=== PATIENT | female | born 1950 | race Asian ===

== ENCOUNTER 2017-11-24 22:42 | Inpatient (IN) | payer OTHER ==
[~2017-11-24] VITALS: Ht 152.4 cm; Wt 56.3 kg
[2017-11-25 00:01] LABS: HEMATOCRIT 38.8 % (36.0-46.0); HEMOGLOBIN 12.8 G/DL (11.9-15.5); MCH 27.2 PG (29.0-34.0); MCV 82.4 FL (83-99); PLATELET COUNT 291 K/uL (156-360); RBC DIS.WIDTH-CV 12.6 % (11.8-14.6); RED BLOOD COUNT 4.71 M/uL (3.80-5.20); WHITE BLOOD COUNT 11.6 K/uL (4.1-10.2)
[2017-11-25 00:10] LABS: CHLORIDE 103 mEq/L (99-109); POTASSIUM 3.9 mEq/L (3.7-5.4); SODIUM 138 mEq/L (136-147)
[2017-11-25 00:11] LABS: GLUCOSE 132 mg/dL (70-99)
[2017-11-25 00:15] LABS: CREATININE 0.8 mg/dL (0.6-1.3)
[2017-11-25 00:16] LABS: UREA NITROGEN (BUN) 11 mg/dL (9-23)
[2017-11-25 00:32] LABS: GFR ESTIMATE (CALCULATED) > 59 mL/min/
[2017-11-25 01:50] LABS: TOTAL PROTEIN 7.4 g/dL (6.4-8.3)
[2017-11-25 01:51] LABS: TOTAL BILIRUBIN 0.9 mg/dL (0.0-1.0)
[2017-11-25 01:52] LABS: ALKALINE PHOSPHATASE 79 IU/L (3-129)
[2017-11-25 01:55] LABS: AST (GOT) 26 IU/L (2-34); DIRECT BILIRUBIN 0.3 mg/dL (0.0-0.3)
[2017-11-25 01:56] LABS: ALT (GPT) 27 IU/L (3-49); LIPASE 51 U/L (1.0-51.0)
[2017-11-25 01:59] LABS: TROP-I INTERPRETATION NEGATIVE; TROPONIN-I < 0.01 ng/mL (0.0-0.30)
[2017-11-25 03:57] LABS: PTT 31.4 SEC (25-37)
[2017-11-25 06:20] VITALS: BP 152/88
[2017-11-25 07:30] VITALS: BP 145/84
[2017-11-25 07:38] LABS: TROP-I INTERPRETATION NEGATIVE; TROPONIN-I < 0.01 ng/mL (0.0-0.30)
[2017-11-25 12:01] VITALS: BP 171/93
[2017-11-25 13:30] LABS: TROP-I INTERPRETATION NEGATIVE; TROPONIN-I < 0.01 ng/mL (0.0-0.30)
[2017-11-25 15:22] VITALS: BP 147/81
[2017-11-25 19:29] VITALS: BP 128/75
[2017-11-26] VITALS (7 sets, daily range): BP systolic 92–158; BP diastolic 51–81
[2017-11-26 06:47] LABS: CHLORIDE 106 MEQ/L (99-109); GFR ESTIMATE (CALCULATED) 59 mL/min/; GLUCOSE 100 mg/dL (70-99); POTASSIUM 3.9 MEQ/L (3.7-5.4); SODIUM 137 MEQ/L (136-147); UREA NITROGEN (BUN) 12 mg/dL (9-23)
[2017-11-26 06:48] LABS: HEMATOCRIT 32.5 % (36.0-46.0); MCH 26.8 PG (29.0-34.0); MCHC 31.7 G/DL (30.0-36.0); MCV 84.4 FL (83-99); PLATELET COUNT 247 K/uL (156-360); RBC DIS.WIDTH-CV 12.9 % (11.8-14.6); RBC DIS.WIDTH-SD 39.9 % (39-53); RED BLOOD COUNT 3.85 M/uL (3.80-5.20); WHITE BLOOD COUNT 12.3 K/uL (4.1-10.2)
[2017-11-26 06:49] LABS: HEMOGLOBIN 10.3 G/DL (11.9-15.5)
[2017-11-26] MEDS ORDERED: PAIN & FEVER325 MG PO (09:44)
[2017-11-27 03:52] VITALS: BP 156/86
[2017-11-27 07:17] LABS: CHLORIDE 106 MEQ/L (99-109); CREATININE 0.6 MG/DL (0.6-1.3); GFR ESTIMATE (CALCULATED) > 59 mL/min/; GLUCOSE 110 mg/dL (70-99); HEMOGLOBIN 10.4 G/DL (11.9-15.5); MCH 28.1 PG (29.0-34.0); MCHC 33.5 G/DL (30.0-36.0); MCV 83.8 FL (83-99); PLATELET COUNT 282 K/uL (156-360); POTASSIUM 3.6 MEQ/L (3.7-5.4); RBC DIS.WIDTH-CV 12.9 % (11.8-14.6); RBC DIS.WIDTH-SD 39.6 % (39-53); SODIUM 140 MEQ/L (136-147); UREA NITROGEN (BUN) 6 mg/dL (9-23); WHITE BLOOD COUNT 9.3 K/uL (4.1-10.2)
[2017-11-27 07:32] LABS: INTER. NORMALIZED RATIO 1.7
[2017-11-27 07:35] LABS: PTT 65.6 SEC (25-37)
[2017-11-27 07:42] VITALS: BP 153/85
[2017-11-27 11:08] VITALS: BP 141/80
[2017-11-27 17:11] VITALS: BP 143/89
[2017-11-27 20:46] VITALS: BP 133/996
[2017-11-27 23:43] VITALS: BP 135/85
[2017-11-28 07:10] LABS: INTER. NORMALIZED RATIO 1.8
[2017-11-28 07:13] LABS: PTT 64.9 SEC (25-37)
[2017-11-28 08:28] VITALS: BP 156/83
[2017-11-28 16:25] VITALS: BP 154/84
[2017-11-28 23:40] VITALS: BP 128/71
[2017-11-29 06:16] LABS: HEMATOCRIT 33.3 % (36.0-46.0); HEMOGLOBIN 10.8 G/DL (11.9-15.5); MCH 26.6 PG (29.0-34.0); MCHC 32.4 G/DL (30.0-36.0); PLATELET COUNT 347 K/uL (156-360); RBC DIS.WIDTH-CV 12.8 % (11.8-14.6); RBC DIS.WIDTH-SD 38.7 % (39-53); RED BLOOD COUNT 4.06 M/uL (3.80-5.20); WHITE BLOOD COUNT 7.1 K/uL (4.1-10.2)
[2017-11-29 06:25] LABS: INTER. NORMALIZED RATIO 2.3
[2017-11-29 07:05] VITALS: BP 136/86
[2017-11-29 07:05] LABS: PTT 91.6 SEC (25-37)
[2017-11-29 15:37] VITALS: BP 140/84
[2017-11-30] VITALS: BP 133/84
[2017-11-30 03:05] LABS: INTER. NORMALIZED RATIO 3.1
[2017-11-30 06:40] VITALS: BP 160/85
[2017-11-30 11:49] LABS: INTER. NORMALIZED RATIO 3.4
[2017-11-30 15:00] VITALS: BP 145/79
[2017-12-01 06:38] LABS: CHLORIDE 103 MEQ/L (99-109); CREATININE 0.7 MG/DL (0.6-1.3); GFR ESTIMATE (CALCULATED) > 59 mL/min/; GLUCOSE 104 mg/dL (70-99); POTASSIUM 3.5 MEQ/L (3.7-5.4); SODIUM 141 MEQ/L (136-147); UREA NITROGEN (BUN) 11 mg/dL (9-23)
[2017-12-01 06:47] LABS: INTER. NORMALIZED RATIO 3.3
[2017-12-01 06:51] LABS: PTT 48.2 SEC (25-37)
[2017-12-01 07:11] LABS: HEMATOCRIT 36.5 % (36.0-46.0); HEMOGLOBIN 11.9 G/DL (11.9-15.5); MCHC 32.6 G/DL (30.0-36.0); MCV 82.8 FL (83-99); PLATELET COUNT 416 K/uL (156-360); RBC DIS.WIDTH-CV 13.1 % (11.8-14.6); RBC DIS.WIDTH-SD 39.2 % (39-53); RED BLOOD COUNT 4.41 M/uL (3.80-5.20); WHITE BLOOD COUNT 7.6 K/uL (4.1-10.2)
[2017-12-01 08:52] VITALS: BP 157/92
[2017-12-01] MEDS ORDERED: CARVEDILOL6.25 MG PO (11:35)
[2017-12-01] MEDS ORDERED: COUMADIN3 MG PO (11:35)
[2017-12-02 18:35] LABS: ACTIVATED PROTEIN C RESIST+ 4.9 ratio (>=2.1); DRVVT Mixing Study Interp Not Indicated (()); FACTOR VIII ACTIVITY+ 190 % (50-180); PROTEIN C FUNCTIONAL ACTIVITY+ 65 % (70-180); PTT-LA 116 sec (<=40); Protein S, Free 105 % normal (50-147); Thrombosis Consult Level Limited (()); dRVVT Screen 40 sec (<=45)
[2017-12-03 10:44] LABS: ANTITHROMBIN III ACTIVITY+ 69 % activi (80-120)
== END 2017-12-01 13:35 | disposition home or self-care (01) | DRG 176 ==
LOC: EME 22:42 → 4EAST 11-25 04:48 → EDOF 11-25 04:48 → 5EAST 11-25 04:48 → ENRESERV 11-25 05:11 → 4EAST 11-25 06:15 → ENRESERV 11-26 20:14 → 5EAST 11-26 22:23 → ENPENDDIS 12-01 → 5EAST 12-01 13:35
PROVIDERS: Family Medicine; Hospitalist; Internal Medicine; Internal Medicine Hematology & Oncology
PROC: 0DJ08ZZ Inspection of Upper Intestinal Tract, Via Natural or Artificial Opening Endoscopic (ICD-10-PCS; principal; 2017-11-27)
DX: I26.99 Other pulmonary embolism without acute cor pulmonale (principal); R65.10 Systemic inflammatory response syndrome (SIRS) of non-infectious origin without acute organ dysfunction; C49.A0 Gastrointestinal stromal tumor, unspecified site; J98.11 Atelectasis; E86.0 Dehydration; I10 Essential (primary) hypertension; R79.1 Abnormal coagulation profile; K29.80 Duodenitis without bleeding; K29.70 Gastritis, unspecified, without bleeding; K21.0 Gastro-esophageal reflux disease with esophagitis; D21.4 Benign neoplasm of connective and other soft tissue of abdomen; D72.829 Elevated white blood cell count, unspecified; R00.0 Tachycardia, unspecified; Z79.01 Long term (current) use of anticoagulants
CPT/HCPCS: 71020; 71275; 74177; 80048; 80076; 81240 90; 82272; 83090 90; 83690; 83735; 84484; 85027; 85240 90; 85300 90; 85303 90; 85305 90; 85306 90; 85307 90; 85379; 85610; 85613 90; 85670 90; 85730; 85730 90; 86146 90; 86147 90; 93005; 93970; 99281; 99284; J2250; J2405; J2765; J3010; J7030